=== PATIENT | male | born 1965 | race Asian ===

== ENCOUNTER → 2017-06-29 | Outpatient (CLI) | payer OTHER | LOC: COL.RAD 08:18 | DX: R51 Headache (principal) ==

== ENCOUNTER 2017-10-30 07:15 | Day surgery (SDC) | payer OTHER ==
[~2017-10-30] VITALS: Ht 175.3 cm; Wt 76.7 kg
[2017-10-30] MEDS ORDERED: LIPITOR 10MG10 MG PO (07:43)
[2017-10-30 07:57] VITALS: BP 152/94; PULSE 107; TEMP 96.9
[2017-10-30 09:17] VITALS: BP 142/96; PULSE 105; TEMP 96.9
[2017-10-30 09:30] VITALS: BP 137/90; PULSE 88
[2017-10-30 09:45] VITALS: BP 128/98; PULSE 93
[2017-10-30] MEDS ORDERED: PRILOTC (09:54)
[2017-10-30 10:00] VITALS: BP 126/86; PULSE 85
[2017-10-30 11:11] VITALS: BP 128/82; PULSE 107
== END 2017-10-30 10:20 | disposition home or self-care (01) ==
LOC: SDCO 07:15
DX: Z12.11 Encounter for screening for malignant neoplasm of colon (principal); D37.2 Neoplasm of uncertain behavior of small intestine; I49.3 Ventricular premature depolarization
CPT/HCPCS: OP; J2250; J2405; J3010; J7030

== ENCOUNTER 2017-11-03 15:28 | Inpatient (IN) | payer OTHER ==
[~2017-11-03] VITALS: Ht 175.3 cm; Wt 98.0 kg
[~2017-11-03 15:28] MED LIST: LIPITOR 10MG10 MG PO; PRILOTC
[2017-11-11] VITALS (8 sets, daily range): BP systolic 118–144; BP diastolic 70–95; PULSE 93–106; TEMP 97.6–98.2
[2017-11-11] MEDS ORDERED: FLAGYL500 MG PO (10:27)
[2017-11-11] MEDS ORDERED: NEOMYCIN S500 MG/TAB PO (10:27)
[2017-11-12 01:43] VITALS: BP 116/62; PULSE 105; TEMP 98
[2017-11-12 05:24] VITALS: BP 103/65; PULSE 97; TEMP 98.3
[2017-11-12 07:35] LABS: HEMATOCRIT 36.3 % (42.0-52.0); HEMOGLOBIN 12.3 g/dl (13.5-18.0)
[2017-11-12 08:01] LABS: CALCIUM 8.9 mg/dL (8.4-10.2); CREATININE, serum 0.96 mg/dL (0.66-1.25); MAGNESIUM 1.6 mg/dL (1.6-2.3); PHOSPHOROUS 3.8 mg/dL (2.5-4.5); POTASSIUM 3.9 mmol/L (3.4-5.0)
[2017-11-12 08:33] VITALS: BP 114/72; PULSE 94; TEMP 98
[2017-11-12 13:22] VITALS: BP 137/75; PULSE 90; TEMP 98.1
[2017-11-12 16:00] VITALS: BP 118/74; PULSE 99; TEMP 98.3
[2017-11-12 23:12] VITALS: BP 119/47; PULSE 98; TEMP 98.4
[2017-11-13 05:31] VITALS: BP 120/79; PULSE 107; TEMP 98.2
[2017-11-13 06:48] LABS: HEMATOCRIT 27.2 % (42.0-52.0); HEMOGLOBIN 9.1 g/dl (13.5-18.0)
[2017-11-13 10:32] VITALS: BP 123/74; PULSE 107; TEMP 98.7
[2017-11-13 14:25] VITALS: BP 130/69; PULSE 107; TEMP 98.1
[2017-11-13 14:59] LABS: HEMATOCRIT 28.2 % (42.0-52.0); HEMOGLOBIN 9.7 g/dl (13.5-18.0)
== END 2017-11-13 17:34 | disposition home or self-care (01) | DRG 330 ==
LOC: SURG 11-11 09:26 → INPTSU 11-11 09:26 → SURG 11-11 11:45
PROVIDERS: Surgery
PROC: 8E0W4CZ Robotic Assisted Procedure of Trunk Region, Percutaneous Endoscopic Approach (ICD-10-PCS; 2017-11-11)
PROC: 0DTF4ZZ Resection of Right Large Intestine, Percutaneous Endoscopic Approach (ICD-10-PCS; principal; 2017-11-11 11:45)
DX: D37.2 Neoplasm of uncertain behavior of small intestine (principal); D62 Acute posthemorrhagic anemia
CPT/HCPCS: A4314; A9284; J0330; J0690; J1100; J1170; J1650; J1670; J1885; J2250; J2405; J2704; J3010; J7120

== ENCOUNTER → 2018-03-05 | Outpatient (CLI) | payer OTHER ==
[~2018-03-05] MED LIST changes: +FLAGYL500 MG PO; +NEOMYCIN S500 MG/TAB PO
== END ==
LOC: COL.RAD 12:00
DX: I26.99 Other pulmonary embolism without acute cor pulmonale (principal); J90 Pleural effusion, not elsewhere classified; R79.1 Abnormal coagulation profile; R04.2 Hemoptysis
CPT/HCPCS: Q9967

== ENCOUNTER → 2018-03-05 | Outpatient (CLI) | payer OTHER ==
[2018-03-05 10:26] LABS: HEMOGLOBIN 14.8 g/dl (13.5-18.0); MEAN CELL VOLUME 87 fl (80.0-100.0); MEAN CORPUSCULAR HEMOGLOBIN 29 pg (27.0-31.0); MEAN CORPUSCULAR HGB CONC 34 g/dl (33.0-37.0); MEAN PLATELET VOLUME 9.2 fl (7.4-10.4); PLATELET COUNT 228 K/mm3 (130-400); RED BLOOD COUNT 5.06 M/mm3 (4.20-5.60); REDCELL DISTRIBUTION WIDTH-CV 12.6 % (11.5-14.5)
[2018-03-05 10:44] LABS: ALBUMIN 4.2 gm/dL (3.5-5.0); BILIRUBIN,TOTAL 0.8 mg/dL (0.0-1.0); CALCIUM 9.1 mg/dL (8.4-10.2); CREATININE, serum 0.98 mg/dL (0.66-1.25); POTASSIUM 3.8 mmol/L (3.4-5.0); TOTAL PROTEIN 8.3 gm/dL (6.4-8.2)
[2018-03-05 10:57] LABS: C-REACTIVE PROTEIN 16.6 mg/dL (0.0-0.9)
== END ==
LOC: COL.LAB 09:54
PROVIDERS: Family Medicine
DX: Z01.89 Encounter for other specified special examinations (principal)

== ENCOUNTER → 2018-06-04 | Outpatient (CLI) | payer OTHER | LOC: COL.RAD 05-25 07:30 | DX: R10.11 Right upper quadrant pain (principal); R11.0 Nausea ==

== ENCOUNTER 2018-11-12 15:45 | Outpatient (RCR) | payer OTHER | END 2018-12-26 | disposition home or self-care (01) | LOC: MKS.ESL.PT | DX: M54.16 Radiculopathy, lumbar region (principal) ==

== ENCOUNTER 2019-06-01 10:19 | Outpatient (RCR) | payer OTHER | END 2019-08-30 | LOC: MKS.ESL.PT | DX: M54.5 Low back pain (principal) | CPT/HCPCS: G0283-GP ==

== ENCOUNTER → 2021-01-10 | Outpatient (CLI) | payer OTHER | LOC: COL.CARD 07:32 | DX: R00.0 Tachycardia, unspecified (principal) ==

== ENCOUNTER 2021-04-09 11:09 | Outpatient (RCR) | payer OTHER | END 2021-07-08 | disposition home or self-care (01) | LOC: MKS.ESL.PT | DX: M77.11 Lateral epicondylitis, right elbow (principal) ==

== ENCOUNTER → 2021-11-06 | Outpatient (CLI) | payer OTHER | LOC: COL.RAD 09:28 | DX: R10.9 Unspecified abdominal pain (principal); Z90.49 Acquired absence of other specified parts of digestive tract ==

== ENCOUNTER 2024-02-03 09:00 | Outpatient (RCR) | payer OTHER | END 2024-02-14 | disposition home or self-care (01) | LOC: WSOT | DX: G12.21 Amyotrophic lateral sclerosis (principal) ==